=== PATIENT | female | born 1945 | race Two or more races ===

== ENCOUNTER 2019-03-16 13:03 | Observation (INO) | payer BC, OTHER ==
[2019-03-16] MEDS ORDERED: ASPIRIN 81 MG CHEWABLE TABLETS PO ONE (14:25)
[2019-03-16] MEDS ORDERED: ASPIRIN 81 MG CHEWABLE TABLETS ONE (14:43)
[2019-03-16] MEDS ORDERED: ASPIRIN 325 MG TABLET ONE (14:43)
--- NOTE | 2019-03-16 14:46 | PDOC ---
History of Present Illness - General Chief Complaint: Chest Pain Stated Complaint: CHEST PAIN Time Seen by Provider: 03/16/19 13:58 History Source: Patient Exam Limitations: No Limitations - History of Present Illness Initial Comments: 03/16/19 14:19 73YOF with h/o HTN, HLD, coronary athrosclerosis, and pre-DM who p/w left chest pressure radiating down her LUE for the past week. She was seen by her PCP this morning, who instructed her to come into the ED. The daughter notes that the patient has been having these chest pain episodes for years, always exacerbated by stress. She had an argument with her daughter this morning. She has FHx significant for CAD (both parents of [place] per their report). Denies f/c/n/v/d /c, diaphoresis, abdominal pain, ankle/leg swelling, or other symptoms. Past History - Past Medical History Allergies/Adverse Reactions: Allergies Allergy/AdvReac Type Severity Reaction Status Date / Time No Known Drug Allergies Allergy Verified 04/07/18 11:23 Home Medications: Ambulatory Orders Amlodipine Besylate [Norvasc -] 5 mg PO DAILY 09/29/17 Losartan Potassium 100 mg PO DAILY 09/29/17 Omeprazole 40 mg PO DAILY 09/29/17 Aspirin Coated [Ecotrin -] 81 mg PO DAILY tablet.ec 03/17/19 Colestipol HCl 1 gm PO DAILY 03/17/19 Ezetimibe [Zetia] 10 mg PO DAILY 03/17/19 Metformin HCl [Glucophage] 500 mg PO BID 03/17/19 Anemia: No Asthma: No Cancer: No Cardiac Disorders: No CVA: No COPD: No CHF: No Dementia: No Diabetes: No GI Disorders: Yes (GERD) Disorders: No HTN: Yes Hypercholesterolemia: No Liver Disease: No Seizures: No Thyroid Disease: No - Surgical History Abdominal Surgery: No Appendectomy: No Cardiac Surgery: No Cholecystectomy: No Lung Surgery: No Neurologic Surgery: No Orthopedic Surgery: No - Immunization History Immunization Up to Date: Yes - Suicide/Smoking/Psychosocial Hx Smoking History: Never smoked Have you smoked in the past 12 months: No Number of Cigarettes Smoked Daily: 0 Cigars Per Day: 0 Hx Alcohol Use: No Drug/Substance Use Hx: No Substance Use Type: Alcohol Hx Substance Use Treatment: No Review of Systems - Review of Systems Able to Perform ROS?: Yes Comments:: GEN: no fever, chills, malaise, generalized weakness, or weight change HEENT: no ear pain, sore throat, vision change, or eye pain CV: chest pain, no palpitations, lightheadedness, syncope, or edema RESP: no cough, wheezing, or SOB GI: no abdominal pain, nausea, vomiting, diarrhea, constipation, or white/black/ bloody stool : no dysuria, hematuria, incontinence, retention, bleeding, or discharge MSK: no neck/back pain, muscle weakness/pain, or joint swelling/pain NEURO: no headache, seizure, vertigo, numbness, tingling, or focal weakness PSYCH: no substance use, no behavior change SKIN: no jaundice, no rash ROS otherwise negative except as noted in HPI *Physical Exam - Vital Signs Last Vital Signs Temp Pulse Resp BP Pulse Ox 98.2 F 73 18 132/69 96 03/16/19 13:26 03/16/19 13:26 03/16/19 13:26 03/16/19 13:26 03/16/19 13:26 - Physical Exam Comments: GENERAL: well-appearing, A/Ox4, no distress, answers questions appropriately, pleasant [place]ish speaking female HEENT: PERRLA, EOMI, moist mucous membranes NECK/BACK: no midline ttp, no spinal stepoff or deformity, no hematoma, full ROM , neck supple CARDIOVASCULAR: regular rate/rhythm, normal S1S2, 3/6 systolic murmur, strong peripheral pulses, capillary refill <2 seconds, extremities wwp, no edema LUNGS/RESPIRATORY: no respiratory distress, CTAB GI/ABDOMEN: symmetric [id number], normoactive BS, soft, no ttp, no midline pulsatile masses : no CVA tenderness EXTREMITIES: no muscle atrophy, no acute deformity SKIN: warm and dry, no pallor, no jaundice, no rash, no bruising, no skin breakdown, no cuts, no lesions NEUROLOGICAL: GCS 15, CN II-XII grossly intact, 5/5 strength proximally and distally, no facial droop Heart Score/ECG Review - History History: Moderately suspicious - Electrocardiogram EKG: Normal - Age Age: >/= 65 - Risk Factors Risk Factors Heart Score: Yes Hx Hypercholesterolemia, Yes Hx Hypertension, Yes Positive family hx of cardiac disease Based on the list above the patient has:: >/=3 risk factors or Hx atherosclerotic disease - Troponin Troponin: </= normal limit - Score Heart Score - Total: 5 #1 Sinus rhythm, rate of 69, normal axis and intervals, no ischemic ST-T changes ED Treatment Course - LABORATORY CBC & Chemistry Diagram: 03/17/19 05:39 03/17/19 05:39 Medical Decision Making - Medical Decision Making 73YOF p/w chest pain similar to prior episodes, worsened this morning with a stressful argument. Initial Vital Signs Temp Pulse Resp BP Pulse Ox 98.2 F 73 18 132/69 96 03/16/19 13:26 03/16/19 13:26 03/16/19 13:26 03/16/19 13:26 03/16/19 13:26 Exam: As noted in Physical Exam section. DDX IBNLT: Most likely musculoskeletal or stress/anxiety related but cannot rule out ACS, pericarditis, PE. Very unlikely tamponade, aortic dissection, AAA , PTX, esophageal tear, esophagitis (e.g. pill, infectious), esophageal stricture, esophageal FB, gastritis, PUD, pancreatitis, cholecystitis, cholangitis, colitis, bowel perforation, PNA/bronchitis, pleurisy, pleuritis, MVP, etc. W/U ordered: Labs as noted below, EKG CXR. TX ordered: monitor, ASA 325mg. EKG: Reviewed; results as noted in ECG Review section. CXR: Nothing acute Laboratory Tests 03/16/19 03/16/19 03/16/19 14:59 14:59 14:59 WBC 8.7 RBC 4.64 Hgb 13.4 Hct 40.5 MCV 87.3 MCH 28.9 MCHC 33.1 RDW 14.7 Plt Count 333 MPV 7.2 L Absolute Neuts (auto) 5.9 Neutrophils % 67.8 Lymphocytes % 22.4 Monocytes % 7.4 Eosinophils % 1.5 Basophils % 0.9 Nucleated RBC % 0 PT with INR INR Sodium 140 Potassium 4.5 Chloride 106 Carbon Dioxide 30 Anion Gap 5 L BUN 14.4 Creatinine 0.6 Est GFR (CKD-EPI)AfAm 105.54 Est GFR (CKD-EPI)NonAf 91.06 Random Glucose 119 H Calcium 9.7 Magnesium 2.1 Total Bilirubin 0.3 AST 49 H ALT 62 H Alkaline Phosphatase 100 Creatine Kinase 54 Troponin I < 0.02 Total Protein 7.5 Albumin 3.5 03/16/19 14:59 WBC RBC Hgb Hct MCV MCH MCHC RDW Plt Count MPV Absolute Neuts (auto) Neutrophils % Lymphocytes % Monocytes % Eosinophils % Basophils % Nucleated RBC % PT with INR 11.90 INR 1.01 Sodium Potassium Chloride Carbon Dioxide Anion Gap BUN Creatinine Est GFR (CKD-EPI)AfAm Est GFR (CKD-EPI)NonAf Random Glucose Calcium Magnesium Total Bilirubin AST ALT Alkaline Phosphatase Creatine Kinase Troponin I Total Protein Albumin Reassessment: Patient states pain improved. HEART score indicates Pt is higher risk and should be managed in hospital with cardiology consult. She is unsafe for discharge at this time. She requires further hospital observation, workup, and treatment. 03/16/19 16:30 Dr. Medina wrote note for EMR; in agreement recommendation is Tele Obs. Microblog sent to [facility] (admitting for Susan Choi). Blank Decision to Admit order is placed per ED protocol. *DC/Admit/Observation/Transfer Diagnosis at time of Disposition: Chest pain Qualifiers: Chest pain type: unspecified Qualified Code(s): R07.9 - Chest pain, unspecified - Discharge Dispostion Condition at time of disposition: Guarded Decision to Admit order: Yes - Referrals - Patient Instructions - Post Discharge Activity
[2019-03-16 15:06] LABS: BASO % 0.9 % (0-2.0); EOS % 1.5 % (0-4.5); HEMATOCRIT 40.5 % (32.4-45.2); HEMOGLOBIN 13.4 GM/dL (10.7-15.3); LYMPH % 22.4 % (8-40); MCH 28.9 pg (25.7-33.7); MCHC 33.1 g/dl (32.0-36.0); MEAN CELL VOLUME 87.3 fl (80-96); MEAN PLT VOLUME 7.2 fl (7.5-11.1); MONO % 7.4 % (3.8-10.2); NEUT % 67.8 % (42.8-82.8); PLATELET COUNT 333 K/MM3 (134-434); RBC 4.64 M/mm3 (3.60-5.2); RDW 14.7 % (11.6-15.6); WHITE BLOOD COUNT 8.7 K/mm3 (4.0-10.0)
[2019-03-16 15:25] LABS: INR 1.01 (0.83-1.09); PROTHROMBIN TIME (PATIENT) 11.9 SEC (9.7-13.0)
--- NOTE | 2019-03-16 15:29 | PDOC ---
Documentation entered by Dain Kruger SCRIBE, acting as scribe for Bigg Yuan MD. Bigg Yuan MD: This documentation has been prepared by the Slick arana Xhesika, SCRIBE, under my direction and personally reviewed by me in its entirety. I confirm that the documentation accurately reflects all work, treatment, procedures, and medical decision making performed by me. Attending Attestation - Resident Resident Name: Dianna Alvarado - ED Attending Attestation I have performed the following: I have examined & evaluated the patient, The case was reviewed & discussed with the resident, I agree w/resident's findings & plan - HPI HPI: 03/16/19 14:55 The patient is a 73 year old female with a significant PMH of HTN, HLD, coronary atherosclerosis, and pre-DM who presents to the emergency department with 1 week of chest pain. Patient describes the pain as L sided chest pressure that radiates to her left upper extremity. As per daughter at bedside, the patient endorses these episodes when she is emotionally stressed and notes this morning she had an argument with her daughter. Patient saw her PCP this morning and was advised to come to the ED for further evaluation. Currently asx, denies any exertional cp or dyspnea. Reports she had extensive workup about 6 months ago (? with Dr. Medina) that was normal, never had/needed cath. Patient notes she has a family history of [place] (both parents from [place]). The patient denies leg swelling, shortness of breath, headache and dizziness. Denies fever, chills, cough, nausea, vomiting, diarrhea and constipation. Denies dysuria, frequency, urgency and hematuria. Allergies: NKDA PCP: Dr. Susan Choi - Physicial Exam PE: 03/16/19 15:26 Vital signs stable Well-appearing lying in stretcher No JVD, neck supple Heart is regular with 3/6 systolic ejection murmur, lungs are clear Abdomen benign No edema or calf tenderness Mood: Patient became tearful when discussing her adult children. She feels "their lives are moving on without her" but she communicates with them daily and they live nearby. She is here with her [id number]. She denies AH/VH/SI/ HI. - Medical Decision Making 03/16/19 15:27 73-year-old female with multiple risk factors for ACS presents now with atypical chest pain brought on almost exclusively by emotional triggers, no evidence of infectious process. Symptoms have been ongoing/exacerbated over the last week, had a routine appointment with her PCP today referred her to the emergency department secondary to her symptoms. Also with mild anxiety/ depression without suicidal ideation. 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 Given her borderline elevated heart score, admission versus prompt cardiology follow-up would be reasonable. Reassess 03/16/19 16:20 trop negative, seen by Dr. Medina - ETT negative but in 2017. admit to tele for further workup. Heart Score/ECG Review #1 ECG reviewed & interpreted by me at: 13:04 General ECG Interpretation: Sinus Rhythm, Normal Rate (69), Normal Intervals ( qtc 435), No acute ischemic changes
[2019-03-16 15:41] LABS: ALBUMIN 3.5 g/dl (3.4-5.0); BILIRUBIN,TOTAL 0.3 mg/dL (0.2-1); BLOOD UREA NITROGEN 14.4 mg/dL (7-18); CALCIUM 9.7 mg/dL (8.5-10.1); CREATININE 0.6 mg/dL (0.55-1.3); MAGNESIUM 2.1 mg/dL (1.8-2.4); POTASSIUM 4.5 mmol/L (3.5-5.1); TOT PROT 7.5 g/dl (6.4-8.2)
--- NOTE | 2019-03-16 16:02 | EKG ---
Test Reason : Blood Pressure : / mmHG Vent. Rate : 069 BPM Atrial Rate : 069 BPM P-R Int : 168 ms QRS Dur : 080 ms QT Int : 406 ms P-R-T Axes : 002 016 051 degrees QTc Int : 435 ms NORMAL SINUS RHYTHM NORMAL ECG Confirmed by MD AUTUMN, WILMAR ([id number]) on 03/16/2019 4:02:19 PM Referred By: Confirmed By:WILMAR LEYVA MD
--- NOTE | 2019-03-16 16:16 | CON.CARD ---
Consult Consult Specialty:: Cardiology Referred by:: Dr. Yuan - History of Present Illness Chief Complaint: chest pain History of Present Illness: 73F w/ HTN present to ER referred by PMD for one week of central chest pressure that occurs randomly, at rest not with exertion. No assd N/V diaphoresis. No edema, PND. Chronic mild CAMERON. In office, negative ETT 2017. ECG with no acute changes. CXR no infiltrate/effusion. PMH: GERD - Past Medical History Cardio/Vascular: Yes: HTN Gastrointestinal: Yes: Constipation, GERD, Hemorrhoids Hepatobiliary: Yes: Other (fatty liver) - Alcohol/Substance Use Hx Alcohol Use: No - Smoking History Smoking history: Never smoked Have you smoked in the past 12 months: No Aproximately how many cigarettes per day: 0 - Social History History of Recent Travel: No Home Medications - Allergies Allergies/Adverse Reactions: Allergies Allergy/AdvReac Type Severity Reaction Status Date / Time No Known Drug Allergies Allergy Verified 04/07/18 11:23 - Home Medications Home Medications: Ambulatory Orders Amlodipine Besylate [Norvasc -] 5 mg PO DAILY 09/29/17 Losartan Potassium 100 mg PO DAILY 09/29/17 Omeprazole 40 mg PO DAILY 09/29/17 Family Disease History - Family Disease History Family History: Unremarkable (No CAD earlier than age 50) Review of Systems - Review of Systems Constitutional: reports: No Symptoms Eyes: reports: No Symptoms HENT: reports: No Symptoms Neck: reports: No Symptoms Cardiovascular: reports: Chest Pain, Shortness of Breath Gastrointestinal: reports: No Symptoms Genitourinary: reports: No Symptoms Breasts: reports: No Symptoms Reported Musculoskeletal: reports: No Symptoms Integumentary: reports: No Symptoms Neurological: reports: No Symptoms Endocrine: reports: No Symptoms Hematology/Lymphatic: reports: No Symptoms Psychiatric: reports: No Symptoms - Risk Factors Known Risk Factors: Yes: Hypertension Vital Signs: Vital Signs Temperature 98.2 F 03/16/19 13:26 Pulse Rate 73 03/16/19 13:26 Respiratory Rate 18 03/16/19 13:26 Blood Pressure 132/69 03/16/19 13:26 O2 Sat by Pulse Oximetry (%) 96 03/16/19 13:26 Constitutional: Yes: No Distress, Calm Eyes: Yes: Conjunctiva Clear, EOM Intact Respiratory: Yes: CTA Bilaterally Gastrointestinal: Yes: Soft (NT) Cardiovascular: Yes: Regular Rate and Rhythm JVD: No Carotid Bruit: No PMI: Non-Displaced Heart Sounds: Yes: S1, S2 (RRR, no M/R/G) Edema: No Neurological: Yes: Alert, Oriented - Other Data Labs, Other Data: CBC, BMP 03/16/19 14:59 03/16/19 14:59 INR, PTT INR 1.01 (0.83-1.09) 03/16/19 14:59 Troponin, BNP 03/16/19 14:59 Troponin I < 0.02 Troponin, BNP 03/16/19 14:59 Troponin I < 0.02 Reviewed: no acute ST changes Holter: Pending Ejection Fraction %: LVEF > or = 40 % Imaging - Results X-ray: Image Reviewed EKG: Image Reviewed Assessment/Plan IMP: 1. Chest pain, largely atypical features 2. Chronic HTN 3. Hx of GERD REC: 1. Tele obs for serial enzymes 2. Echo and nuclear stress test in AM 3. ASA daily 4. Cont usual home meds Further reccs pending above. Thank you
--- NOTE | 2019-03-16 18:29 | HP ---
Admitting History and Physical - Primary Care Physician PCP: Susan Choi - Admission History of Present Illness: Patient is a 73 year old female with a significant past medical history of hypertension, hyperlipidemia, coronary atherosclerosis and pre DM. She presents to the ED on 03/16/2019 with one week of ongoing chest pain that felt light chest tightness and sharp pain. Nothing made the pain worse or better, the chest pain continued throughout the day even at rest. the chest pain radiates to her left arm. Patient was sent by per PCP to the ED after she reported the ongoing chest pain. Patient denies any shortness of breath, or exertional chest pain. History Source: Patient Limitations to Obtaining History: No Limitations - Past Medical History Cardiovascular: Yes: HTN Gastrointestinal: Yes: Constipation, GERD, Hemorrhoids Hepatobiliary: Yes: Other (fatty liver) - Smoking History Smoking history: Never smoked Have you smoked in the past 12 months: No Aproximately how many cigarettes per day: 0 - Alcohol/Substance Use Hx Alcohol Use: No - Social History Usual Living Arrangement: Yes: Alone History of Recent Travel: No Home Medications - Allergies Allergies/Adverse Reactions: Allergies Allergy/AdvReac Type Severity Reaction Status Date / Time No Known Drug Allergies Allergy Verified 04/07/18 11:23 - Home Medications Home Medications: Ambulatory Orders Amlodipine Besylate [Norvasc -] 5 mg PO DAILY 09/29/17 Losartan Potassium 100 mg PO DAILY 09/29/17 Omeprazole 40 mg PO DAILY 09/29/17 Colestipol HCl 1 gm PO DAILY 03/17/19 Ezetimibe [Zetia] 10 mg PO DAILY 03/17/19 Metformin HCl [Glucophage] 500 mg PO BID 03/17/19 Family Disease History - Family Disease History Family Disease History: Other: Father ([place]), Mother ([place]) Review of Systems - Review of Systems Constitutional: reports: No Symptoms Eyes: reports: No Symptoms HENT: reports: No Symptoms Neck: reports: No Symptoms Cardiovascular: reports: Chest Pain Respiratory: reports: No Symptoms Gastrointestinal: reports: No Symptoms Genitourinary: reports: No Symptoms Physical Examination Vital Signs: Vital Signs Temperature 98.2 F 03/16/19 13:26 Pulse Rate 73 03/16/19 13:26 Respiratory Rate 18 03/16/19 13:26 Blood Pressure 132/69 03/16/19 13:26 O2 Sat by Pulse Oximetry (%) 96 03/16/19 13:26 Constitutional: Yes: Well Nourished Eyes: Yes: WNL HENT: Yes: WNL Neck: Yes: WNL, Supple Cardiovascular: Yes: WNL, Regular Rate and Rhythm Respiratory: Yes: WNL, Regular, CTA Bilaterally Gastrointestinal: Yes: WNL ...Rectal Exam: Yes: Deferred Renal/: Yes: WNL Breast(s): Yes: WNL Labs: CBC, BMP 03/16/19 14:59 03/16/19 14:59 Problem List - Problems (1) Chest pain Assessment/Plan: chest pain x 1 week, no shortness of breath Heart score 4 troponins negative on admission, will continue to trend for stress test tomorrow, echo monitor on tele Code(s): R07.9 - CHEST PAIN, UNSPECIFIED Qualifiers: Chest pain type: unspecified Qualified Code(s): R07.9 - Chest pain, unspecified (2) Hypertension Assessment/Plan: controlled on losartan 100 and amlodopine 5 Code(s): I10 - ESSENTIAL (PRIMARY) HYPERTENSION (3) Hyperlipidemia Assessment/Plan: on colestipol 40mg daily Code(s): E78.5 - HYPERLIPIDEMIA, UNSPECIFIED (4) Diabetes Assessment/Plan: [id number] 6.2 on metformin 500 bid Code(s): E11.9 - TYPE 2 DIABETES MELLITUS WITHOUT COMPLICATIONS (5) Prophylactic measure Assessment/Plan: fen tolerating po monitor electrolytes low salt diet prophy ambulatory, los < 48 hrs full code Code(s): Z29.9 - ENCOUNTER FOR PROPHYLACTIC MEASURES, UNSPECIFIED Visit type - Emergency Visit Emergency Visit: Yes ED Registration Date: 03/16/19 Care time: The patient presented to the Emergency Department on the above date and was hospitalized for further evaluation of their emergent condition. - New Patient This patient is new to me today: Yes Date on this admission: 03/17/19 - Critical Care Critical Care patient: No
[2019-03-17] MEDS ORDERED: MELATONIN 5 MG TABLETS PO PRN (00:34)
[2019-03-17 02:43] VITALS: BMI 31.9
[2019-03-17 08:20] LABS: BASO % 1.2 % (0-2.0); EOS % 3.9 % (0-4.5); HEMATOCRIT 36.5 % (32.4-45.2); HEMOGLOBIN 12.1 GM/dL (10.7-15.3); LYMPH % 35.5 % (8-40); MCH 28.8 pg (25.7-33.7); MCHC 33.2 g/dl (32.0-36.0); MEAN CELL VOLUME 86.9 fl (80-96); MEAN PLT VOLUME 7.2 fl (7.5-11.1); MONO % 9.6 % (3.8-10.2); NEUT % 49.8 % (42.8-82.8); PLATELET COUNT 284 K/MM3 (134-434); WHITE BLOOD COUNT 6.9 K/mm3 (4.0-10.0)
[2019-03-17 08:58] LABS: ALK PHOS 88 U/L (45-117); ANION GAP 8 MMOL/L (8-16); BILIRUBIN,TOTAL 0.5 mg/dL (0.2-1); CALCIUM 9.2 mg/dL (8.5-10.1); CHLORIDE 108 mmol/L (98-107); CHOLESTEROL 178 mg/dL (50-200); CO2 27 mmol/L (21-32); CREATININE 0.6 mg/dL (0.55-1.3); GLUCOSE,RANDOM 81 mg/dL (74-106); HDL CHOLESTEROL 49 mg/dL (40-60); MAGNESIUM 2.1 mg/dL (1.8-2.4); POTASSIUM 4.1 mmol/L (3.5-5.1); SGOT/AST 32 U/L (15-37); SGPT/ALT 47 U/L (13-61); SODIUM 143 mmol/L (136-145); TOT PROT 6.4 g/dl (6.4-8.2); TRIGLYCERIDES 74 mg/dL (0-150)
[2019-03-17] MEDS ORDERED: amLODIPine BESYLATE 5 MG TABLET (FP) PO SCH (10:00)
[2019-03-17] MEDS ORDERED: EZETIMIBE 10 MG TABLET (FP) PO SCH (10:00)
[2019-03-17] MEDS ORDERED: COLESTIPOL HCL 1 GM PO SCH (10:00)
[2019-03-17] MEDS ORDERED: ASPIRIN COATED 81 MG TABLET.EC PO SCH (10:00)
[2019-03-17] MEDS ORDERED: LOSARTAN POTASSIUM 50 MG TABLET (FP) PO SCH (10:00)
[2019-03-17] MEDS ORDERED: PANTOPRAZOLE 40 MG TABLET (FP) PO SCH (10:00)
--- NOTE | 2019-03-17 12:34 | ECHO ---
Name: DEL REALCULLEN STRATTON Exam:Adult Echocardiogram Study Date: 03/17/2019 11:17 AM Age: 73 yrs Reason For Study: Jimmy Height: 64 in Weight: 183 lb BSA: 1.9 m2 MMode/2D Measurements & Calculations IVSd: 1.1 cm Ao root diam: 2.4 cm LVIDd: 4.0 cm LA dimension: 3.6 cm LVIDs: 2.5 cm LVPWd: 1.1 cm EDV(Teich): 68.6 ml LVOT diam: 2.0 cm ESV(Teich): 23.3 ml LAV (MOD-bp): 58.0 ml Doppler Measurements & Calculations MV E max rafa: 108.0 cm/sec Ao V2 max: 204.1 cm/sec MV A max rafa: 100.4 cm/sec Ao max P.7 mmHg MV E/A: 1.1 Ao V2 mean: 154.1 cm/sec MV dec time: 0.23 sec Ao mean P.7 mmHg Ao V2 VTI: 53.3 cm NAJMA(I,D): 1.1 cm2 NAJMA(V,D): 1.2 cm2 LV V1 max P.5 mmHg MR max rafa: 422.0 cm/sec LV V1 mean P.4 mmHg MR max P.2 mmHg LV V1 max: 79.5 cm/sec LV V1 mean: 55.3 cm/sec LV V1 VTI: 18.9 cm SV(LVOT): 57.9 ml TR max rafa: 216.5 cm/sec TR max P.2 mmHg PA V2 max: 145.2 cm/sec Med Peak E' Rafa: 6.4 cm/sec PA max P.4 mmHg Med E/e': 16.8 Lat Peak E' Rafa: 7.3 cm/sec Lat E/e': 14.8 Left Ventricle Left ventricular systolic function is normal. Ejection Fraction = 60%. The transmitral spectral Doppl er flow pattern is suggestive of impaired LV relaxation. The left ventricular wall motion is normal. Right Ventricle The right ventricular systolic function is normal. Atria Borderline left atrial enlargement. Right atrial size is normal. Mitral Valve There is moderate mitral valve thickening. There is moderate mitral regurgitation. Tricuspid Valve There is mild tricuspid regurgitation. Right ventricular systolic pressure is 19.2 mmhg. Aortic Valve There is moderate aortic valve thickening. There is mild aortic sclerosis.;. Mild valvular aortic margareth nosis. Aortic mean pressure gradient= 11 mmHg. No aortic regurgitation is present. Pulmonic Valve The pulmonic valve is not well visualized. Great Vessels The aortic root is normal size. Pericardium/Pleura There is no pericardial effusion. Interpretation Summary Ejection Fraction = 60%. The transmitral spectral Doppler flow pattern is suggestive of impaired LV relaxation. The left ventricular wall motion is normal. The right ventricular systolic function is normal. Borderline left atrial enlargement. Right atrial size is normal. There is moderate mitral valve thickening. There is moderate mitral regurgitation. There is mild tricuspid regurgitation. Right ventricular systolic pressure is 19.2 mmhg. There is moderate aortic valve thickening. There is mild aortic sclerosis.; Mild valvular aortic stenosis. Aortic mean pressure gradient= 11 mmHg No aortic regurgitation is present. The pulmonic valve is not well visualized. There is no pericardial effusion. Shaun Benitez MD 03/17/2019 12:33 PM
--- NOTE | 2019-03-17 15:12 | DS ---
Physical Exam: SUBJECTIVE: Patient seen and examined at the bedside. denies chest pain or shortness of breath. wants to go home. OBJECTIVE: Vital Signs Period Temp Pulse Resp BP Sys/Ocasio Pulse Ox Last 24 Hr 97.6 F-98.2 F 60-80 18-20 118-150/63-75 96-98 PHYSICAL EXAM GENERAL: The patient is awake, alert, and fully oriented, in no acute distress. HEAD: Normal with no signs of trauma. EYES: PERRL, extraocular movements intact, sclera anicteric, conjunctiva clear. ENT: Ears normal, nares patent, oropharynx clear without exudates, moist mucous membranes. NECK: Trachea midline, full range of motion, supple. LUNGS: Breath sounds equal, clear to auscultation bilaterally HEART: Regular rate and rhythm, ABDOMEN: Soft, nontender, nondistended, normoactive bowel sounds, no guarding, no rebound, no hepatosplenomegaly, no masses. EXTREMITIES: 2+ pulses, warm, well-perfused, no edema. NEUROLOGICAL: Cranial nerves II through XII grossly intact. Normal speech, gait not observed. PSYCH: Normal mood, normal affect. SKIN: Warm, dry, normal turgor, no rashes or lesions noted. LABS Laboratory Results - last 24 hr 03/16/19 03/16/19 03/16/19 14:59 14:59 14:59 WBC RBC Hgb Hct MCV MCH MCHC RDW Plt Count MPV Absolute Neuts (auto) Neutrophils % Lymphocytes % Monocytes % Eosinophils % Basophils % Nucleated RBC % PT with INR 11.90 INR 1.01 Sodium 140 Potassium 4.5 Chloride 106 Carbon Dioxide 30 Anion Gap 5 L BUN 14.4 Creatinine 0.6 Est GFR (CKD-EPI)AfAm 105.54 Est GFR (CKD-EPI)NonAf 91.06 Random Glucose 119 H Hemoglobin A1c % Calcium 9.7 Magnesium 2.1 Total Bilirubin 0.3 AST 49 H ALT 62 H Alkaline Phosphatase 100 Creatine Kinase 54 Troponin I < 0.02 Total Protein 7.5 Albumin 3.5 Triglycerides Cholesterol Total LDL Cholesterol HDL Cholesterol 03/16/19 03/17/19 03/17/19 17:52 00:20 05:39 WBC 6.9 RBC 4.20 Hgb 12.1 Hct 36.5 MCV 86.9 MCH 28.8 MCHC 33.2 RDW 14.0 Plt Count 284 MPV 7.2 L Absolute Neuts (auto) 3.4 Neutrophils % 49.8 D Lymphocytes % 35.5 D Monocytes % 9.6 Eosinophils % 3.9 D Basophils % 1.2 Nucleated RBC % 0 PT with INR INR Sodium Potassium Chloride Carbon Dioxide Anion Gap BUN Creatinine Est GFR (CKD-EPI)AfAm Est GFR (CKD-EPI)NonAf Random Glucose Hemoglobin A1c % Calcium Magnesium Total Bilirubin AST ALT Alkaline Phosphatase Creatine Kinase 52 Troponin I < 0.02 < 0.02 Total Protein Albumin Triglycerides Cholesterol Total LDL Cholesterol HDL Cholesterol 03/17/19 03/17/19 05:39 05:39 WBC RBC Hgb Hct MCV MCH MCHC RDW Plt Count MPV Absolute Neuts (auto) Neutrophils % Lymphocytes % Monocytes % Eosinophils % Basophils % Nucleated RBC % PT with INR INR Sodium 143 Potassium 4.1 Chloride 108 H Carbon Dioxide 27 Anion Gap 8 BUN 17.0 Creatinine 0.6 Est GFR (CKD-EPI)AfAm 105.54 Est GFR (CKD-EPI)NonAf 91.06 Random Glucose 81 Hemoglobin A1c % 6.2 Calcium 9.2 Magnesium 2.1 Total Bilirubin 0.5 AST 32 ALT 47 Alkaline Phosphatase 88 Creatine Kinase 40 Troponin I < 0.02 Total Protein 6.4 Albumin 3.0 L Triglycerides 74 Cholesterol 178 Total LDL Cholesterol 116 H HDL Cholesterol 49 HOSPITAL COURSE: Date of Admission:03/16/19 Date of Discharge: 03/17/19 Patient is a 73 year old female with a significant past medical history of hypertension, hyperlipidemia, coronary atherosclerosis and pre DM. She presents to the ED on 03/16/2019 with one week of ongoing chest pain that felt light chest tightness and sharp pain. Nothing made the pain worse or better, the chest pain continued throughout the day even at rest. the chest pain radiates to her left arm. Patient was sent by per PCP to the ED after she reported the ongoing chest pain. Patient denies any shortness of breath, or exertional chest pain. Chest pain resolved today, negative troponins. for d/c home. Minutes to complete discharge: 60 Discharge Summary Reason For Visit: CHEST PAIN Current Active Problems Chest pain (Acute) Diabetes (Acute) Hyperlipidemia (Acute) Hypertension (Acute) Prophylactic measure (Acute) Condition: Good - Instructions Diet, Activity, Other Instructions: Mrs Wade: You came in for chest pain and you will be discharged home today. Your cardiac workup was negative. If your chest pain returns, please return to the ED. Thank you for allowing us to care for you. Referrals: Rob Medina MD [Staff Physician] - Disposition: HOME - Home Medications Comprehensive Discharge Medication List: Ambulatory Orders Amlodipine Besylate [Norvasc -] 5 mg PO DAILY 09/29/17 Losartan Potassium 100 mg PO DAILY 09/29/17 Omeprazole 40 mg PO DAILY 09/29/17 Aspirin Coated [Ecotrin -] 81 mg PO DAILY tablet.ec 03/17/19 Colestipol HCl 1 gm PO DAILY 03/17/19 Ezetimibe [Zetia] 10 mg PO DAILY 03/17/19 Metformin HCl [Glucophage] 500 mg PO BID 03/17/19 Problem List - Problems (1) Chest pain Assessment/Plan: resolved. troponins negative x 4 stress test negative Code(s): R07.9 - CHEST PAIN, UNSPECIFIED Qualifiers: Chest pain type: unspecified Qualified Code(s): R07.9 - Chest pain, unspecified (2) Hypertension Assessment/Plan: controlled. continue home medications. Code(s): I10 - ESSENTIAL (PRIMARY) HYPERTENSION (3) Hyperlipidemia Assessment/Plan: continue home medications. Code(s): E78.5 - HYPERLIPIDEMIA, UNSPECIFIED (4) Diabetes Assessment/Plan: on metformin 500 bid Code(s): E11.9 - TYPE 2 DIABETES MELLITUS WITHOUT COMPLICATIONS (5) Prophylactic measure Assessment/Plan: discharge home. Code(s): Z29.9 - ENCOUNTER FOR PROPHYLACTIC MEASURES, UNSPECIFIED This patient is new to me today: No Emergency Visit: Yes ED Registration Date: 03/16/19 Care time: The patient presented to the Emergency Department on the above date and was hospitalized for further evaluation of their emergent condition. Critical Care patient: No - Discharge Referral Referred to [facility] Med P.C.: No
[2019-03-17 15:21] VITALS: BP 144/75; PULSE 71; TEMP 98.2
[2019-03-17] MEDS ORDERED: metFORMIN HCL 500 MG TABLET (FP) PO SCH (16:30)
--- NOTE | 2019-03-17 16:50 | PN ---
Progress Note (short form) - Note Progress Note: s: no cp sob palps dizzy o: Vital Signs Period Temp Pulse Resp BP Sys/Ocasio Pulse Ox Last 24 Hr 97.6 F-98.2 F 60-80 17-20 118-150/63-75 96-98 Constitutional: Yes: No Distress, Calm Eyes: Yes: Conjunctiva Clear, EOM Intact Respiratory: Yes: CTA Bilaterally Gastrointestinal: Yes: Soft (NT) Cardiovascular: Yes: Regular Rate and Rhythm JVD: No Carotid Bruit: No PMI: Non-Displaced Heart Sounds: Yes: S1, S2 (RRR, no M/R/G) Edema: No Neurological: Yes: Alert, Oriented Current Medications Generic Name Dose Route Start Last Admin Trade Name Freq PRN Reason Stop Dose Admin Amlodipine Besylate 5 mg 03/17/19 10:00 03/17/19 09:08 Norvasc - PO Not Given DAILY NOAH Aspirin 81 mg 03/17/19 10:00 03/17/19 09:08 Ecotrin - PO Not Given DAILY NOAH Ezetimibe 10 mg 03/17/19 10:00 03/17/19 09:26 Zetia - PO Not Given DAILY NOAH Losartan Potassium 100 mg 03/17/19 10:00 03/17/19 09:07 Cozaar - PO Not Given DAILY NOAH Melatonin 5 mg 03/17/19 00:34 03/17/19 00:50 Melatonin PO 5 mg HS PRN Administration INSOMNIA Metformin HCl 500 mg 03/17/19 16:30 Glucophage - PO BIDAC NOAH Non-Formulary Medication 1 gm 03/17/19 10:00 Colestipol Hcl [Colestipol Hcl] PO DAILY NOAH Pantoprazole Sodium 40 mg 03/17/19 10:00 03/17/19 09:08 Protonix - PO Not Given DAILY NOAH Laboratory Last Values WBC 6.9 K/mm3 (4.0-10.0) 03/17/19 05:39 RBC 4.20 M/mm3 (3.60-5.2) 03/17/19 05:39 Hgb 12.1 GM/dL (10.7-15.3) 03/17/19 05:39 Hct 36.5 % (32.4-45.2) 03/17/19 05:39 MCV 86.9 fl (80-96) 03/17/19 05:39 MCH 28.8 pg (25.7-33.7) 03/17/19 05:39 MCHC 33.2 g/dl (32.0-36.0) 03/17/19 05:39 RDW 14.0 % (11.6-15.6) 03/17/19 05:39 Plt Count 284 K/MM3 (134-434) 03/17/19 05:39 MPV 7.2 fl (7.5-11.1) L 03/17/19 05:39 Absolute Neuts (auto) 3.4 K/mm3 (1.5-8.0) 03/17/19 05:39 Neutrophils % 49.8 % (42.8-82.8) D 03/17/19 05:39 Lymphocytes % 35.5 % (8-40) D 03/17/19 05:39 Monocytes % 9.6 % (3.8-10.2) 03/17/19 05:39 Eosinophils % 3.9 % (0-4.5) D 03/17/19 05:39 Basophils % 1.2 % (0-2.0) 03/17/19 05:39 Nucleated RBC % 0 % (0-0) 03/17/19 05:39 PT with INR 11.90 SEC (9.7-13.0) 03/16/19 14:59 INR 1.01 (0.83-1.09) 03/16/19 14:59 Sodium 143 mmol/L (136-145) 03/17/19 05:39 Potassium 4.1 mmol/L (3.5-5.1) 03/17/19 05:39 Chloride 108 mmol/L (98-107) H 03/17/19 05:39 Carbon Dioxide 27 mmol/L (21-32) 03/17/19 05:39 Anion Gap 8 MMOL/L (8-16) 03/17/19 05:39 BUN 17.0 mg/dL (7-18) 03/17/19 05:39 Creatinine 0.6 mg/dL (0.55-1.3) 03/17/19 05:39 Est GFR (CKD-EPI)AfAm 105.54 03/17/19 05:39 Est GFR (CKD-EPI)NonAf 91.06 03/17/19 05:39 Random Glucose 81 mg/dL (74-106) 03/17/19 05:39 Hemoglobin A1c % 6.2 % (4.2-6.3) 03/17/19 05:39 Calcium 9.2 mg/dL (8.5-10.1) 03/17/19 05:39 Magnesium 2.1 mg/dL (1.8-2.4) 03/17/19 05:39 Total Bilirubin 0.5 mg/dL (0.2-1) 03/17/19 05:39 AST 32 U/L (15-37) 03/17/19 05:39 ALT 47 U/L (13-61) 03/17/19 05:39 Alkaline Phosphatase 88 U/L (45-117) 03/17/19 05:39 Creatine Kinase 40 U/L (26-192) 03/17/19 05:39 Troponin I < 0.02 ng/ml (0.00-0.05) 03/17/19 05:39 Total Protein 6.4 g/dl (6.4-8.2) 03/17/19 05:39 Albumin 3.0 g/dl (3.4-5.0) L 03/17/19 05:39 Triglycerides 74 mg/dL (0-150) 03/17/19 05:39 Cholesterol 178 mg/dL (50-200) 03/17/19 05:39 Total LDL Cholesterol 116 mg/dL (5-100) H 03/17/19 05:39 HDL Cholesterol 49 mg/dL (40-60) 03/17/19 05:39 tele: sr Imaging - Results X-ray: Image Reviewed EKG: Image Reviewed Assessment/Plan IMP: 1. Chest pain, largely atypical features 2. Chronic HTN 3. Hx of GERD REC: 1. Tele benign, ce's negative 2. Echo and nuclear stress test unremarkable 3. ASA daily 4. Cont usual home meds cardiac ang stable for dc with outpt cardiology f/u 2-4 weeks
[2019-03-17] MEDS ORDERED: ATORVASTATIN CA 20 MG TABLET (FP) PO SCH (22:00)
== END 2019-03-17 17:46 | disposition home or self-care (01) ==
LOC: JER 13:03 → JERBED 16:31 → J4W 03-17 00:01
PROVIDERS: ATTEND Nurse Practitioner Family
DX: R07.89 Other chest pain (principal); I10 Essential (primary) hypertension; E78.5 Hyperlipidemia, unspecified; I25.10 Atherosclerotic heart disease of native coronary artery without angina pectoris; E11.9 Type 2 diabetes mellitus without complications; K21.9 Gastro-esophageal reflux disease without esophagitis; Z29.9 Encounter for prophylactic measures, unspecified; Z82.49 Family history of ischemic heart disease and other diseases of the circulatory system
CPT/HCPCS: 36415; 71046-TC-FY; 78452-TC; 80053; 80061; 82550; 83036; 83721; 83735; 84484; 85025; 85610; 93005; 93010; 93017; 93306-TC; 99285-25; A9502; G0378

== ENCOUNTER 2019-06-29 14:41 | Emergency (ER) | payer BC, OTHER ==
[2019-06-29 14:51] VITALS: BP 140/59; PULSE 82; TEMP 97.7; BMI 31.4
--- NOTE | 2019-06-29 14:52 | PDOC ---
Rapid Medical Evaluation Time Seen by Provider: 06/29/19 14:49 Medical Evaluation: Allergies Allergy/AdvReac Type Severity Reaction Status Date / Time No Known Drug Allergies Allergy Verified 04/07/18 11:23 Vital Signs Temp Pulse Resp BP Pulse Ox 97.7 F 82 16 140/59 L 99 06/29/19 14:47 06/29/19 14:47 06/29/19 14:47 06/29/19 14:47 06/29/19 14:47 06/29/19 14:51 I have performed a brief in-person evaluation of this patient. The patient presents with a chief complaint of: neck Pertinent physical exam findings:stable and in NAD, non-focal I have ordered the following: provider to determine The patient will proceed to the ED for further evaluation. Discharge Disposition - Referrals Referrals: Susan Choi MD [Primary Care Provider] - - Patient Instructions - Post Discharge Activity
[2019-06-29] MEDS ORDERED: morphine CARPU-JECT 4 MG/1 ML DISP.SYRIN IVPUSH ONE (15:42)
--- NOTE | 2019-06-29 15:57 | PDOC ---
*Physical Exam - Vital Signs Last Vital Signs Temp Pulse Resp BP Pulse Ox 97.7 F 82 16 140/59 L 99 06/29/19 14:47 06/29/19 14:47 06/29/19 14:47 06/29/19 14:47 06/29/19 14:47 ED Treatment Course - LABORATORY CBC & Chemistry Diagram: 06/29/19 16:13 06/29/19 16:13 Medical Decision Making - Medical Decision Making 06/29/19 15:55 Ms. Wade is a 74-year-old female presenting to the emergency department with a complaint of neck pain Patient states her symptoms began 2 hours prior to arrival to the emergency department. Patient denies traumatic injury to the head or neck. No prior episodes like this. No fevers or chills. Patient points to the left trapezius as being tender No limitations in range of motion On examination: Patient is crying She has tenderness to palpation over the left trapezius No midline tenderness of the cervical spine Patient also of note has some soft tissue swelling overlying the insertion of the sternocleidomastoid on the clavicle No skin changes No erythema, no warmth Pt seen by Midlevel Provider under my direct supervision Pt interviewed and examined Ancillary studies pending We will do labs We will do CT neck with contrast We will give analgesia We will reassess I agree with plan as outlined by Midlevel Provider 06/29/19 17:48 Laboratory Tests 06/29/19 06/29/19 16:13 16:13 WBC 12.3 H Hgb 12.8 Hct 40.5 Plt Count 362 BUN 14.[address] pending 06/29/19 18:07 CT with isolated enlarged lymph node Exam consistent with Torticollis Will discharge to home with analgesia Discharge - Discharge Information Clinical Impression/Diagnosis: Torticollis, acquired Condition: Improved - Additional Discharge Information Prescriptions: Diazepam [Valium] 2 mg PO Q6H PRN #8 tablet MDD 4 doses PRN Reason: Muscle Spasms Tramadol HCl 50 mg PO Q6H #15 tablet MDD 200 mg - Follow up/Referral Referrals: Susan Choi MD [Primary Care Provider] - - Patient Discharge Instructions Patient Printed Discharge Instructions: DI for Torticollis Additional Instructions: It appears you have a neck pain condition called torticollis which is a condition where the neck muscles contracts and causes painful spasms This condition usually improves over time. Take pain medication as directed If symptoms persist, return to ED or follow-up with your PMD - Post Discharge Activity
[2019-06-29] MEDS ORDERED: METHOCARBAMOL 500 MG TABLET PO ONE (16:05)
[2019-06-29] MEDS ORDERED: METHOCARBAMOL 500 MG TABLET ONE (16:07)
[2019-06-29] MEDS ORDERED: morphine SULFATE 4 MG/ML VIAL ONE (16:08)
[2019-06-29 16:31] LABS: BASO % 0.7 % (0-2.0); EOS % 0.8 % (0-4.5); HEMATOCRIT 40.5 % (32.4-45.2); HEMOGLOBIN 12.8 GM/dL (10.7-15.3); LYMPH % 14.9 % (8-40); MCH 27.2 pg (25.7-33.7); MCHC 31.6 g/dl (32.0-36.0); MEAN CELL VOLUME 86.2 fl (80-96); MEAN PLT VOLUME 7.1 fl (7.5-11.1); MONO % 8.1 % (3.8-10.2); NEUT % 75.5 % (42.8-82.8); PLATELET COUNT 362 K/MM3 (134-434); WHITE BLOOD COUNT 12.3 K/mm3 (4.0-10.0)
[2019-06-29 16:53] LABS: ALBUMIN 3.3 g/dl (3.4-5.0); BILIRUBIN,TOTAL 0.2 mg/dL (0.2-1); BLOOD UREA NITROGEN 14.8 mg/dL (7-18); CALCIUM 9.6 mg/dL (8.5-10.1); CREATININE 0.7 mg/dL (0.55-1.3); POTASSIUM 4.8 mmol/L (3.5-5.1); TOT PROT 7.4 g/dl (6.4-8.2)
--- NOTE | 2019-06-29 17:24 | PDOC ---
History of Present Illness - General Chief Complaint: Pain, Acute Stated Complaint: NECK PAIN Time Seen by Provider: 06/29/19 14:49 History Source: Patient, Family - History of Present Illness Timing/Duration: other (this am) Past History - Past Medical History Allergies/Adverse Reactions: Allergies Allergy/AdvReac Type Severity Reaction Status Date / Time No Known Drug Allergies Allergy Verified 06/29/19 14:51 Home Medications: Ambulatory Orders Amlodipine Besylate [Norvasc -] 5 mg PO DAILY 09/29/17 Losartan Potassium 100 mg PO DAILY 09/29/17 Omeprazole 40 mg PO DAILY 09/29/17 Aspirin Coated [Ecotrin -] 81 mg PO DAILY tablet.ec 03/17/19 Colestipol HCl 1 gm PO DAILY 03/17/19 Ezetimibe [Zetia] 10 mg PO DAILY 03/17/19 Metformin HCl [Glucophage] 500 mg PO BID 03/17/19 Diazepam [Valium] 2 mg PO Q6H PRN #8 tablet MDD 4 doses 06/29/19 Tramadol HCl 50 mg PO Q6H #15 tablet MDD 200 mg 06/29/19 Anemia: No Asthma: No Cancer: No Cardiac Disorders: No CVA: No COPD: No CHF: No Dementia: No Diabetes: No GI Disorders: Yes (GERD) Disorders: No HTN: Yes Hypercholesterolemia: Yes Liver Disease: No Seizures: No Thyroid Disease: No - Surgical History Abdominal Surgery: No Appendectomy: No Cardiac Surgery: No Cholecystectomy: No Lung Surgery: No Neurologic Surgery: No Orthopedic Surgery: No - Immunization History Immunization Up to Date: Yes - Psycho Social/Smoking Cessation Hx Smoking History: Never smoked Have you smoked in the past 12 months: No Number of Cigarettes Smoked Daily: 0 Cigars Per Day: 0 Hx Alcohol Use: No Drug/Substance Use Hx: No Substance Use Type: Alcohol Hx Substance Use Treatment: No Review of Systems - Review of Systems Constitutional: No: Chills, Fever, Unexplained wgt Loss ABD/GI: No: Nausea, Vomiting Neurological: No: Headache, Numbness, Tingling, Weakness, Dizziness *Physical Exam - Vital Signs Last Vital Signs Temp Pulse Resp BP Pulse Ox 97.7 F 82 16 140/59 L 99 06/29/19 14:47 06/29/19 14:47 06/29/19 14:47 06/29/19 14:47 06/29/19 14:47 - Physical Exam General Appearance: Yes: Appropriately Dressed, Severe Distress HEENT: positive: Normal Voice Neck: positive: Other (swollen, tender, L sided neck muscles) Respiratory/Chest: positive: Lungs Clear, Normal Breath Sounds. negative: Respiratory Distress Cardiovascular: positive: Regular Rate, S1, S2 Integumentary: positive: Dry, Warm Neurologic: positive: Fully Oriented, Alert, Normal Mood/Affect, Motor Strength 5/5. negative: Sensory Deficit ED Treatment Course - LABORATORY CBC & Chemistry Diagram: 06/29/19 16:13 06/29/19 16:13 - ADDITIONAL ORDERS Additional order review: Laboratory Results 06/29/19 16:13 Sodium 139 Potassium 4.8 Chloride 105 Carbon Dioxide 29 Anion Gap 5 L BUN 14.8 Creatinine 0.7 Est GFR (CKD-EPI)AfAm 99.62 Est GFR (CKD-EPI)NonAf 85.95 Random Glucose 130 H Calcium 9.6 Total Bilirubin 0.2 AST 35 ALT 42 Alkaline Phosphatase 108 Total Protein 7.4 Albumin 3.3 L 06/29/19 16:13 RBC 4.70 MCV 86.2 MCHC 31.6 L RDW 14.0 MPV 7.1 L Neutrophils % 75.5 D Lymphocytes % 14.9 D Monocytes % 8.1 Eosinophils % 0.8 Basophils % 0.7 - RADIOLOGY Radiology Studies Ordered: Category Date Time Status SOFT TISSUE NECK CT WITH CONTR [CT] Stat CT Scan 06/29/19 15:43 Ordered CHEST PA & LAT [RAD] Stat Radiology 06/29/19 15:42 Completed - Medications Given in the ED: ED Medications Discontinued Medications Generic Name Dose Route Start Last Admin Trade Name Bettie PRN Reason Stop Dose Admin Methocarbamol 1,000 mg 06/29/19 16:05 06/29/19 16:16 Robaxin - PO 06/29/19 16:06 1,000 mg ONCE ONE Administration Morphine Sulfate 4 mg 06/29/19 15:42 06/29/19 16:15 Morphine Injection - IVPUSH 06/29/19 15:43 4 mg ONCE ONE Administration Medical Decision Making - Medical Decision Making 06/29/19 17:24 74-year-old female, history of hypertension, here with severe left-sided neck pain that patient states she awoke with this a.m. Family also noted some swelling of muscles to L neck. Patient denies any sensory changes, upper extremity weakness, headache, dizziness, visual changes nausea or vomiting. No recent trauma. No history of same. See exam Suspect torticollis Appears very uncomfortable but stable, currently sitting in wheelchair and holding neck in flexed position w/ chin tilted to R side w/ significantly swollen, tender L sided neck muscles, no neurological deficit -pain control -labs/CT soft tissues -reassess 06/29/19 17:[address] soft tissue read as no mass or fluid collection. Seen is a non-specific mildly enlarged left supraclavicular lymph node. Patient states pain improved w/ morphine initially but still in some pain. Will continue to control pain in ER. Anticipate dc w/ pain control and PMD f/u 06/29/19 18:27 After receiving a dose of Toradol here, patient states she feels well enough to go home. To follow-up with PMD this week Discharge - Discharge Information Problems reviewed: Yes Clinical Impression/Diagnosis: Torticollis, acquired Condition: Improved Disposition: HOME - Additional Discharge Information Prescriptions: Diazepam [Valium] 2 mg PO Q6H PRN #8 tablet MDD 4 doses PRN Reason: Muscle Spasms Tramadol HCl 50 mg PO Q6H #15 tablet MDD 200 mg - Follow up/Referral Referrals: Susan Choi MD [Primary Care Provider] - - Patient Discharge Instructions Patient Printed Discharge Instructions: DI for Torticollis Additional Instructions: It appears you have a neck pain condition called torticollis which is a condition where the neck muscles contracts and causes painful spasms This condition usually improves over time. Take pain medication as directed If symptoms persist, return to ED or follow-up with your PMD - Post Discharge Activity
[2019-06-29] MEDS ORDERED: KETOROLAC TROMETHAMINE 30 MG/1 ML VIAL IVPUSH ONE (18:18)
[2019-06-29] MEDS ORDERED: KETOROLAC TROMETHAMINE 30 MG/1 ML VIAL ONE (18:23)
== END 2019-06-29 18:34 | disposition home or self-care (01) ==
LOC: JER 14:41
PROC: 3E033NZ Introduction of Analgesics, Hypnotics, Sedatives into Peripheral Vein, Percutaneous Approach (ICD-10-PCS; principal; 2019-06-29)
PROC: 3E0333Z Introduction of Anti-inflammatory into Peripheral Vein, Percutaneous Approach (ICD-10-PCS; 2019-06-29)
DX: M43.6 Torticollis (principal); I10 Essential (primary) hypertension; E78.00 Pure hypercholesterolemia, unspecified; E11.9 Type 2 diabetes mellitus without complications; Z79.84 Long term (current) use of oral hypoglycemic drugs; K21.9 Gastro-esophageal reflux disease without esophagitis
CPT/HCPCS: 36415; 70491-TC; 71046-TC-FY; 80053; 85025; 96374; 96375; 99283-25

== ENCOUNTER 2021-01-01 05:02 | Day surgery (SDC) | payer OTHER ==
[2020-12-29 14:33] VITALS: BMI 30.9
[2021-01-01 12:00] VITALS: TEMP 97.8
[2021-01-01 12:30] VITALS: PULSE 63
[2021-01-01 12:36] VITALS: BP 145/65
== END 2021-01-01 12:55 | disposition home or self-care (01) ==
LOC: JASU-ENDO 05:02
PROVIDERS: ATTEND Internal Medicine Gastroenterology
PROC: 0DB78ZX Excision of Stomach, Pylorus, Via Natural or Artificial Opening Endoscopic, Diagnostic (ICD-10-PCS; principal; 2021-01-01 11:00)
DX: K29.60 Other gastritis without bleeding (principal); K44.9 Diaphragmatic hernia without obstruction or gangrene; K21.9 Gastro-esophageal reflux disease without esophagitis; R12 Heartburn
CPT/HCPCS: 82962; 88305-TC; 88342-TC

== ENCOUNTER 2021-07-30 04:58 | Day surgery (SDC) | payer OTHER ==
[2021-07-25 15:39] VITALS: BMI 33.3
[2021-07-30 13:36] VITALS: BP 149/66; PULSE 62; TEMP 98
== END 2021-07-30 14:04 | disposition home or self-care (01) ==
LOC: JASU-ENDO 04:58
PROVIDERS: ATTEND Internal Medicine Gastroenterology
PROC: 0DB68ZX Excision of Stomach, Via Natural or Artificial Opening Endoscopic, Diagnostic (ICD-10-PCS; principal; 2021-07-30)
PROC: 0DB78ZX Excision of Stomach, Pylorus, Via Natural or Artificial Opening Endoscopic, Diagnostic (ICD-10-PCS; 2021-07-30)
DX: K29.50 Unspecified chronic gastritis without bleeding (principal); K44.9 Diaphragmatic hernia without obstruction or gangrene
CPT/HCPCS: 88305-TC; 88342-TC

== ENCOUNTER 2021-08-17 10:48 | Emergency (ER) | payer OTHER ==
[2021-08-17 11:14] VITALS: BP 136/77; PULSE 67; TEMP 98.2; BMI 33.5
[2021-08-17] MEDS ORDERED: KETOROLAC TROMETHAMINE 15 MG/ML VIAL IM ONE (12:05)
[2021-08-17] MEDS ORDERED: KETOROLAC TROMETHAMINE 15 MG/ML VIAL ONE (12:15)
== END 2021-08-17 13:21 | disposition home or self-care (01) ==
LOC: JERFT 10:48
PROC: 3E0233Z Introduction of Anti-inflammatory into Muscle, Percutaneous Approach (ICD-10-PCS; principal; 2021-08-17)
DX: M54.50 Low back pain, unspecified (principal)
CPT/HCPCS: 72100-TC-FY; 96372; 99284-25

== ENCOUNTER 2022-06-11 04:56 | Day surgery (SDC) | payer OTHER ==
[2022-06-10 16:47] VITALS: BMI 30.7
[2022-06-11 13:18] VITALS: TEMP 97.5
[2022-06-11 14:14] VITALS: BP 100/59; PULSE 70; RESP 12
== END 2022-06-11 14:10 | disposition home or self-care (01) ==
LOC: JASU-ENDO 04:56
PROVIDERS: ATTEND Internal Medicine Gastroenterology
PROC: 0DB68ZX Excision of Stomach, Via Natural or Artificial Opening Endoscopic, Diagnostic (ICD-10-PCS; 2022-06-11)
PROC: 0DB98ZX Excision of Duodenum, Via Natural or Artificial Opening Endoscopic, Diagnostic (ICD-10-PCS; principal; 2022-06-11 11:45)
DX: K29.50 Unspecified chronic gastritis without bleeding (principal); K44.9 Diaphragmatic hernia without obstruction or gangrene
CPT/HCPCS: 88305-TC; 88342-TC

== ENCOUNTER 2022-07-01 12:58 | Emergency (ER) | payer OTHER ==
[2022-07-01 13:50] VITALS: PULSE 78; TEMP 98.2; BMI 30.6
[2022-07-01 15:35] LABS: INR 1.3 (0.83-1.09)
[2022-07-01 15:36] LABS: HEMATOCRIT 40.1 % (32.4-45.2); HEMOGLOBIN 13.2 GM/dL (10.7-15.3); MCH 28.7 pg (25.7-33.7); MCHC 33.1 g/dl (32.0-36.0); MEAN CELL VOLUME 86.7 fl (80-96); MEAN PLT VOLUME 8.1 fl (7.5-11.1); PLATELET COUNT 437 10^3/uL (134-434); RBC 4.62 M/mm3 (3.60-5.2); RDW 16.8 % (11.6-15.6); WHITE BLOOD COUNT 9.3 K/mm3 (4.0-10.0)
[2022-07-01 15:38] LABS: ACTIVATED PTT 37.6 SECONDS (25.2-36.5)
[2022-07-01 15:45] LABS: CALCIUM 9.2 mg/dL (8.5-10.1)
[2022-07-01 15:46] LABS: ALBUMIN 2.4 g/dl (3.4-5.0); BLOOD UREA NITROGEN 7.9 mg/dL (7-18)
[2022-07-01 15:48] LABS: CREATININE 0.6 mg/dL (0.55-1.3)
[2022-07-01 15:50] LABS: TOT PROT 7.1 g/dl (6.4-8.2)
[2022-07-01] MEDS ORDERED: LACTATED RINGERS SOLUTION 1000 ML INFUS.BAG IV ONE (17:07)
[2022-07-01 19:55] LABS: URINE APPEARANCE CLEAR; URINE BILIRUBIN 3+ (NEGATIVE); URINE COLOR DK YELLOW; URINE GLUCOSE (UA) NEGATIVE (NEGATIVE); URINE KETONE NEGATIVE (NEGATIVE); URINE LEUK ESTERASE NEGATIVE (NEGATIVE); URINE NITRITE NEGATIVE (NEGATIVE); URINE PROTEIN NEGATIVE (NEGATIVE)
[2022-07-01 23:00] VITALS: BP 116/72; RESP 18
== END 2022-07-01 23:09 | disposition short-term general hospital (02) ==
LOC: JER 12:58
DX: R17 Unspecified jaundice (principal); R10.811 Right upper quadrant abdominal tenderness
CPT/HCPCS: 36415; 71046-TC-FY; 74183-TC; 80053; 80307; 81003; 82140; 83690; 85027; 85610; 85730; 86704; 86705; 86708; 86709; 86803; 86850; 86900; 86901; 87086; 87340; 87517; 93005; 93010; 99285-25; C9803-CS; U0003; U0005